=== PATIENT | male | born 1940 | race Caucasian/White ===

== ENCOUNTER 2025-06-05 15:21 | Emergency (ER) | payer MEDICARE, SELFPAY ==
[2025-06-05 15:37] VITALS: BP 187/104
--- NOTE | 2025-06-05 16:13 | ED.GENMED ---
History of Present Illness
General
Chief Complaint: Abdominal Symptoms
Source: patient
Exam Limitations: none
Time Seen by Provider: 06/05/25 15:49
Nursing documentation reviewed up to this point in time: agreed with
History of Present Illness
History of Present Illness:
Patient to ED with complaint of lower abdominal pain. Reports pain started this morning. Reports nausea and dry heaves. Denies fever and chills. No prior history of lower abdominal pain. Last BM was this morning, normal for him. Brought self
to ED for eval.
Past History
Past History
ED Past Medical History: None
ED Past Surgical History: Other (hiatal hernia)
Review of Systems
Review of Systems
Allergies reviewed?: Yes
All Other Systems: ROS reviewed and negative except as documented in HPI and ROS
Constitutional: Reports no symptoms
EENT: Reports no symptoms
Respiratory: Reports no symptoms
Cardiac: Reports no symptoms
ABD/GI: Reports abdominal pain (lower abd. pain)
: Reports no symptoms
Musculoskeletal: Reports no symptoms
Skin: Reports no symptoms
Neurological: Reports no symptoms
Psychiatric: Reports no symptoms
Phy Exam
General Physical Exam
General Presentation: moderate distress
General age: appears stated age
General Skin: warm and dry
General Habitus: normal
General Mental: alert
Cardiovascular Exam
Cardiovascular Exam: regular rate/rhythm and no edema
Pulmonary Exam
Pulmonary Exam: lungs clear and no respiratory distress
Gastrointestinal Exam
Gastrointestinal Exam: normal bowel sounds, soft, no organomegaly, no pulsatile mass, non distended and no cva tenderness
Musculoskeletal Exam
Musculoskeletal Exam: full ROM and neuro vasc intact
Skin Exam
Skin Exam: normal color, warm/dry and no rash
Psychiatric Exam
Psychiatric Exam: normal mood/affect
Course
Orders/Labs/Results
Orders:
Orders
06/05/25 16:11
HYDROmorphone [Dilaudid] 0.5 mg IV NOW STA
Ondansetron Injectable [Zofran] 4 mg IV NOW STA
06/05/25 16:12
0.9% Sodium Chloride 1000 ml [Nss] 1,000 ml IV BOLUS
06/05/25 16:13
CT Abd/pelvis W Iv Cont Urgent
Comment:
Reason For Exam: lower abd. pain
06/05/25 16:28
Complete Blood Count/With Diff Urgent
Comprehensive Metabolic Panel Urgent
Lipase Urgent
06/05/25 16:29
Urinalysis Reflex To Culture Urgent
Date Specimen was Collected: 06/05/25
Time Specimen was Collected: 16:27
Urine Microscopic Reflex Cult Urgent
06/05/25 18:09
0.9% Sodium Chloride 1000 ml [Nss] 1,000 ml IV BOLUS
Ketorolac [Toradol] 15 mg IV NOW STA
Prochlorperazine [Compazine] 10 mg IV NOW STA
Tamsulosin [Flomax] 0.4 mg PO NOW STA
06/05/25 20:14
Oxycodone/Acetaminophen [Percocet 5/325] 1 tablet PO NOW STA
Prochlorperazine [Compazine] 10 mg PO NOW STA
Abnormal Lab Results
06/05/25 06/05/25
16:28 16:29
WBC 16.1 H 10^3/uL
(4.8-10.8)
RBC 4.52 L 10^6/uL
(4.70-6.10)
MCV 95.4 H fL
(80.0-94.0)
MCH 31.9 H pg
(27.0-31.0)
Abs Immat Gran (auto) 0.1 H 10^3/uL
(0-0.05)
Absolute Neuts (auto) 10.7 H 10^3/uL
(1.4-6.5)
Absolute Lymphs (auto) 4.7 H 10^3/uL
(1.2-3.4)
Glucose 113 H mg/dl
(70-99)
Urine Ketones 2+ A
(Negative)
Ur Occult Blood Reflex 4+ A
(Negative)
Urine RBC 21-25 A /HPF
(0-2)
Urine Albumin (Reflex) 1+ A
(Neg - Trace)
06/05/25 16:28
06/05/25 16:28
Vital Signs
Initial and Last Documented VS:
Initial Vital Signs
Temp Pulse Resp BP Pulse Ox
97.4 F 56 18 187/104 97
06/05/25 15:37 06/05/25 15:37 06/05/25 15:37 06/05/25 15:37 06/05/25 15:37
Last Documented Vital Signs
Temp Pulse Resp BP Pulse Ox
97.4 F 97 15 142/98 93
06/05/25 15:37 06/05/25 20:00 06/05/25 20:00 06/05/25 20:00 06/05/25 20:00
*Radiology
Radiology exam reviewed: radiology read reviewed
*Pulse Oximetry
SaO2: 97
Oxygen Mode of Delivery: Room air
Patient hypoxic: no
*Critical Care Note
Total Time (30-74mins, 75-104mins- exclusive of procedures): Not Applicable
Update Note
Update Note:
Patient to the emergency department with complaint of lower abdominal pain. Pain started this morning. Associated with nausea and vomiting/ dry heaves. He was given IV fluids Dilaudid and Zofran with some improvement in his pain, no improvement
in vomiting. He was then given Toradol and Compazine with resolution of pain nausea and vomiting. he was sent for abdominal CT with IV contrast. CT results: Extra ureteral contrast demonstrated. This may represent proximal ureteral/forniceal
rupture. 4 mm distal left ureteral calculus was seen. Mild to moderate left hydroureteronephrosis present. Dr. Ackerman consulted. He feels that the patient, if stable, can be to for outpatient trial. Recommends tamsulosin Toradol increasing
hydration and straining urine. Discussed plan with patient and daughter. He remains pain-free and has had no further nausea or vomiting. He feels that he can be discharged home. He agrees to return to the emergency department if pain worsens or
if nausea vomiting return. Prescription for Toradol tamsulosin and Compazine were sent to his pharmacy. labs reviewed WBC is 16 noted. UA is negative for UTI. VSS patient remains afebrile he is discharged him accompanied by his daughter.
ED Attending Note
-
Portions of this chart may have been created with voice recognition software.� Occasional wrong word or��sound alike� substitutions may have occurred due to the inherent limitations of voice recognition software.
Discharge Plan
Departure
Patient Disposition: Home (Routine Discharge)
Date of Disposition: 06/05/25
Time of Disposition: 20:13
Patient with high blood pressure during this ER visit?: No
Condition: Good
Covid-19: Not Applicable
Discharge Problem:
Kidney stones
Instructions: Kidney stones in adults, Nausea and Vomiting, Adult (DC), How to Strain Your Urine
Prescriptions:
New
ketorolac 10 mg tablet
10 mg PO TID PRN (Reason: Pain) 3 Days Qty: 10 0RF
prochlorperazine maleate [Compazine] 10 mg tablet
10 mg PO TID PRN (Reason: nausea and vomiting) Qty: 10 0RF
tamsulosin [Flomax] 0.4 mg capsule
0.4 mg PO DAILY Qty: 14 0RF
Referrals:
Denys Ortega MD [Family Provider, Internal Medicine]
Piotr Ackerman MD [Active, Urology] - Call in 1-3 days for appt
Activity Restrictions/Additional Instructions:
Return to the emergency department immediately for any changes in/worsening of your symptoms,
Interventions
Interventions:
*Risk Screen - Suicide Last Done: 06/05/25 16:00
*General Assessment Last Done: 06/05/25 16:00
*Neglect/Abuse Screening Last Done: 06/05/25 16:00
*ED- Fall Risk Assessment Last Done: 06/05/25 16:00
*ED COVID-19 Vaccine History Last Done: 06/05/25 16:00
*ED Influenza Vaccine History Last Done: 06/05/25 16:00
IB-Bkwsby-Ftngrhlgsa Assessment Last Done: 06/05/25 16:00
Discharge Date and Time
Print Language: FRISIAN
[2025-06-05] MEDS: DILAUDID 0.5 MG IV (16:20)
[2025-06-05] MEDS: ZOFRAN 4 MG IV (16:20)
[2025-06-05] MEDS: NSS 1000 IV ×2 (16:20→18:22)
[2025-06-05 16:45] LABS: Hematocrit 43.1 % (39.0-52.0); Hemoglobin 14.4 g/dL (13.0-18.0); Mean Corp Hgb Conc. 33.4 g/dL (33.0-37.0); Mean Corpuscular Volume 95.4 fL (80.0-94.0); Platelet Count 186 10^3/uL (130-400); Red Cell Dist. Width 12.9 % (11.5-14.5)
[2025-06-05 16:53] LABS: Urine Character Clear (Clear)
[2025-06-05 16:54] VITALS: BP 218/102
[2025-06-05 17:02] LABS: Urine Red Blood Cell 21-25 /HPF (0-2)
[2025-06-05 17:03] LABS: ALT (SGPT) 15 U/L (0-50); AST (SGOT) 20 U/L (17-59); Albumin 4.5 g/dl (3.5-5.0); Alkaline Phosphatase 76 U/L (38-126); Blood Urea Nitrogen 17 mg/dl (9-20); Calcium 9.4 mg/dl (8.4-10.2); Carbon Dioxide 27 mmol/L (22-30); Chloride 103 mmol/L (98-107); Glucose 113 mg/dl (70-99); Lipase 32 U/L (23-300); Potassium 4.2 mmol/L (3.5-5.1); Sodium 137 mmol/L (135-145); Total Protein 7.5 g/dl (6.3-8.2); eGFR > 60.00
[2025-06-05 17:04] LABS: Nucleated Red Blood Cells % 0 % (-)
[2025-06-05] MEDS: TORADOL 15 MG IV (18:21)
[2025-06-05] MEDS: COMPAZINE 10 MG IV (18:21)
[2025-06-05] MEDS: FLOMAX 0.4 MG PO (18:22)
[2025-06-05 18:41] VITALS: BP 190/114
--- NOTE | 2025-06-05 18:42 | EDRN ---
This RN spoke with Nia DOE regarding elevated BP's most recent 190/114. Awaiting further orders at this time
[2025-06-05 19:47] VITALS: BP 173/115
--- NOTE | 2025-06-05 19:52 | EDRN ---
Report received, introduced myself to patient who states they are feeling much better than when they came in, their blood pressure is starting to come down, will update patient when there is a dispo
[2025-06-05 20:00] VITALS: BP 142/98
[2025-06-05] MEDS: PERCOCET 5/325 1 TABLET PO (20:30)
[2025-06-05] MEDS: COMPAZINE 10 MG PO (20:31)
== END 2025-06-05 20:42 | disposition home or self-care (01) ==
LOC: EMR 15:21
PROVIDERS: Nurse Practitioner; EMERGENCY PHYSICIAN Emergency Medicine; FAMILY PHYSICIAN Internal Medicine
DX: N13.2 Hydronephrosis with renal and ureteral calculous obstruction (principal); K44.9 Diaphragmatic hernia without obstruction or gangrene
CPT/HCPCS: 99284; 96374; 96375 ×3; 96361 ×2; 74177; 80053; 81003; 81015; 83690; 85025; Q9967